=== PATIENT | male | born 1990 | race American Indian/Alaskan Native ===

== ENCOUNTER 2016-10-19 08:12 | Emergency (ER) | payer SELFPAY ==
[2016-10-19] MEDS ORDERED: ATROVENT IH ONE ×2 (10:54→10:55)
[2016-10-19] MEDS ORDERED: PROVENTIL IH ONE ×3 (10:54→12:12)
--- NOTE | 2016-10-19 12:11 | Emergency Department Report ---
HPI - General Chief Complaint: Dyspnea/Respdistress Time Seen by Provider: 10/19/16 11:45 - HPI HPI: Patient here reports that it is hard for him to breathe. States that he has been wheezing since last night. He said he's had bronchitis in the past. Denies any fever or chills. Denies any nausea or vomiting. Denies any chest pain. No [id number] medication taken and he said he has some coughing. Patient blood pressure is 175/108 and he denies any history of high blood pressure. Denies any asthma. Denies any pain. ED Past Medical Hx - Past Medical History Previous Medical History?: Yes Additional medical history: Bronchitis - Surgical History Past Surgical History?: No - Social History Smoking Status: Never Smoker Substance Use Type: None Other Social History: single - Medications Home Medications: Home Medications Medication Instructions Recorded Confirmed Last Taken Type ALBUTEROL Inhaler [ProAir HFA 2 puff IH QID PRN #1 inhalation 10/19/16 Unknown Rx Inhaler] Amoxicillin/K Clav Tab [Augmentin 1 tab PO Q12HR #20 tab 10/19/16 Unknown Rx 875 mg] predniSONE [Deltasone] 50 mg PO QDAY #5 tab 10/19/16 Unknown Rx ED Review of Systems ROS: Stated complaint: MILO Other details as noted in HPI Comment: All other systems reviewed and negative Constitutional: denies: chills, fever, malaise, weakness Eyes: denies: vision change ENT: denies: ear pain, throat pain, congestion Respiratory: cough, SOB with exertion, wheezing. denies: orthopnea, shortness of breath, SOB at rest, stridor Cardiovascular: denies: chest pain, palpitations, edema, syncope Gastrointestinal: denies: abdominal pain, nausea, vomiting, diarrhea Musculoskeletal: denies: back pain, joint swelling, arthralgia, myalgia Skin: denies: rash Neurological: denies: headache, weakness, numbness, paresthesias, confusion, abnormal gait, vertigo Physical Exam - Physical Exam Vital Signs: Vital Signs 10/19/16 10/19/16 10/19/16 08:19 11:02 11:25 Temperature 98.2 F Pulse Rate 87 Pulse Rate [ 68 70 Anterior Bilateral Throughout] Respiratory 18 Rate Respiratory 20 20 Rate [Anterior Bilateral Throughout] Blood Pressure 175/108 O2 Sat by Pulse 97 Oximetry General: This is a 26-year-old male well-nourished well-developed in no acute distress. Physical Exam: Head: Normocephalic, atraumatic. No abrasions, laceration or contusion Neck: Supple, no adenopathy. Full range of motion. No C-spine tenderness. No muscular tenderness Ears: Bilateral TMs pearly martin, bilaterally EAC without any redness swelling or drainage. Nose: Rodolfo nasal mucosa without any erythema or congestion. No drainage. No maxillary or frontal sinus tenderness. Mouth: Moist, no pharyngeal exudate or erythema. Uvula is midline and oral airways patent. Tongue is normal. No trismus. No peritonsillar abscess. CV:S1, S2 regular rate and rhythm Lungs: wheezes in throughout lung johnson. Normal work of breathing. Psych cough. No use of accessory muscle. Abdomen: Nontender the palpation in all quadrants, no guarding or rebound tenderness. No CVA tenderness and normal bowel sounds in all quadrants. Extremity: No clubbing, cyanosis or edema. +2 pulses in all extremities. No neurovascular compromise. Capillary refill is less than 3 seconds. Good color , sensation, movement and temperature in all extremities. Able to ambulate without any difficulties. Skin: Clean dry and intact, no rash or lesions. PSYCH: Normal mood and behavior. ED Course Vital Signs 10/19/16 10/19/16 10/19/16 08:19 11:02 11:25 Temperature 98.2 F Pulse Rate 87 Pulse Rate [ 68 70 Anterior Bilateral Throughout] Respiratory 18 Rate Respiratory 20 20 Rate [Anterior Bilateral Throughout] Blood Pressure 175/108 O2 Sat by Pulse 97 Oximetry Vital Signs 10/19/16 10/19/16 10/19/16 08:19 11:02 11:25 Temperature 98.2 F Pulse Rate 87 Pulse Rate [ 68 70 Anterior Bilateral Throughout] Respiratory 18 Rate Respiratory 20 20 Rate [Anterior Bilateral Throughout] Blood Pressure 175/108 Blood Pressure [Left] O2 Sat by Pulse 97 Oximetry 10/19/16 10/19/16 10/19/16 12:21 12:34 12:43 Temperature Pulse Rate 100 H Pulse Rate [ 62 75 Anterior Bilateral Throughout] Respiratory 18 Rate Respiratory 20 20 Rate [Anterior Bilateral Throughout] Blood Pressure Blood Pressure [Left] O2 Sat by Pulse 98 Oximetry 10/19/16 12:55 Temperature Pulse Rate Pulse Rate [ Anterior Bilateral Throughout] Respiratory Rate Respiratory Rate [Anterior Bilateral Throughout] Blood Pressure Blood Pressure 160/88 [Left] O2 Sat by Pulse Oximetry - Reevaluation(s) Reevaluation #1: 10/19/16 12:58 Patient received albuterol total of 10 mg while in emergency room in 5 mg increments nebulizer, Atrovent 0.5 mg nebulizer and Deltasone 60 mg by mouth by mouth. Upon reevaluation, patient with scattered wheeze in the upper lung johnson and he said he is feeling better. ED Medical Decision Making - Medical Decision Making MDM: ED Course: Patient here complaining of wheezing, cough and difficulty breathing since last night. He had bronchitis in the past with similar presentation. Patient was treated with albuterol 10 mg nebulizer, Atrovent 0.5 mg nebulizer and Deltasone 60 mg by mouth and emergency room. Reevaluation, lungs sounds with scattered wheeze in the upper johnson. He reports that he is feeling better. I explained treatment plan and diagnosis patient and he voiced understanding. Patient will be discharged home with steroids, nebulizer and antibiotic. Should also have elevated blood pressure and emergency room and he denies having history of high blood pressure. I also instructed him that he will need to follow-up with his primary care physician and if he does not have a primary care physician he can follow up at [facility] Diagnosis: Acute bronchitis, cough Medication: Patient given prescription for Augmentin, albuterol HFA and Deltasone. The above ED course for medication given in the emergency room discharged home and instructed to follow-up with primary care in 3 days Patient also instructed that he will need to keep a log of his blood pressure and take to primary care visit with him for follow-up elevated blood pressure and emergency room. Was educated and dash diet. Critical care attestation.: If time is entered above; I have spent that time in minutes in the direct care of this critically ill patient, excluding procedure time. ED Disposition Clinical Impression: Elevated blood pressure reading without diagnosis of hypertension, Cough in adult Bronchitis, acute Qualifiers: Bronchitis organism: unspecified organism Qualified Code(s): J20.9 - Acute bronchitis, unspecified Disposition: DC-01 TO HOME OR SELFCARE Is pt being admited?: No Does the pt Need Aspirin: No Condition: Stable Instructions: Heart Healthy Diet (ED), Acute Bronchitis (ED), DASH Eating Plan (ED), Hypertension (ED), Acute Cough (ED) Additional Instructions: Please increase her fluid intake Take meds Medication as prescribed If symptoms worsen, return to the emergency room otherwise follow-up at [facility] in 3 days keep a log of your blood pressure and take to primary care visits for evaluation of blood pressure. See discharge instructions on DASH diet and healthy heart diet Prescriptions: ALBUTEROL Inhaler [ProAir HFA Inhaler] 2 puff IH QID PRN #1 inhalation PRN Reason: Wheezing Amoxicillin/K Clav Tab [Augmentin 875 mg] 1 tab PO Q12HR #20 tab predniSONE [Deltasone] 50 mg PO QDAY #5 tab Referrals: PRIMARY CARE, [Primary Care Provider] - 2-3 Days [facility] [Outside] - 2-3 Days Forms: Work/School Release Form(ED)
[2016-10-19] MEDS ORDERED: DELTASONE PO ONE (12:12)
[2016-10-19 12:56] VITALS: BP 160/88
== END 2016-10-19 13:24 | disposition home or self-care (01) ==
LOC: ED 08:12
DX: J20.9 Acute bronchitis, unspecified (principal); R03.0 Elevated blood-pressure reading, without diagnosis of hypertension
CPT/HCPCS: 94640; 99283; J7512